=== PATIENT | female | born 1985 | race Caucasian/White ===

== ENCOUNTER 2017-05-31 06:18 | Inpatient (IN) | payer BC ==
[2017-05-31] MEDS ORDERED: METHYLERGONOVINE 0.2 MG/ML 1 ML AMP IM PRN (06:21)
[2017-05-31] MEDS ORDERED: LIDOCAINE 1% (PF) 10 MG/ML (30 ML SDV) SQ PRN (06:21)
[2017-05-31] MEDS ORDERED: OXYTOCIN 10 UNIT/ML 1 ML VIAL IM PRN (06:21)
[2017-05-31] MEDS ORDERED: CARBOPROST TROMETHAMINE 250 MCG/ML 1 ML AMP IM PRN (06:21)
[2017-05-31] MEDS ORDERED: TERBUTALINE 1 MG/ML VIAL SQ PRN (06:21)
[2017-05-31 06:26] VITALS: BMI 31.1
[2017-05-31] MEDS ORDERED: LACTATED RINGERS 1,000 ML IV SCH (06:30)
[2017-05-31] MEDS: LACTATED RINGERS 1,000 ML IV SCH ×2 (06:34→10:15)
[2017-05-31] MEDS: OXYTOCIN 20 UNITS/1000 ML NS 1,000 ML IV SCH (06:34)
[2017-05-31 06:58] LABS: Basophils # (A) 0.1 k/uL (0-0.2); Basophils % (A) 1 %; Eosinophils # (A) 0.1 k/uL (0-0.7); Eosinophils % (A) 1 %; HCT 39.6 % (34.0-46.0); HGB 13.7 gm/dL (11.4-16.0); Lymphocytes # (A) 2.5 k/uL (1.0-4.8); Lymphocytes % (A) 25 %; MCH 32.2 pg (25.0-35.0); MCHC 34.5 g/dL (31.0-37.0); MCV 93.2 fL (80.0-100.0); Mean Platelet Volume 7.9; Monocytes # (A) 0.6 k/uL (0-1.0); Monocytes % (A) 6 %; Neutrophils # (A) 6.6 k/uL (1.3-7.7); Neutrophils % (A) 66 %; Platelet Count 214 k/uL (150-450); RBC 4.24 m/uL (3.80-5.40); RDW 12.6 % (11.5-15.5)
--- NOTE | 2017-05-31 07:47 | P.HPOB ---
History of Present Illness H&P Date: 05/31/17 This is a 32-year-old white female 7 para 40-4 EDC 05/31/2017 at 40 weeks gestation. Patient presents for elective induction of labor but is noted to be in early spontaneous labor with uterine contractions every 4-5 minutes apart. Fetus is been active throughout the . She denies vaginal bleeding or fluid leakage. Past obstetric history is significant for negative group B strep cultures, blood type O positive, rubella status immune. Pap smear, urine culture, gonorrhea and chlamydia cultures, hepatitis B surface antigen, HIV testing all negative. One hour Glucola elevated, 3 hour GTT within normal limits. Social history patient is , she has never been a smoker, she denies alcohol or drug use. Past medical history is essentially negative. Past surgical history D&C in 2005. Current medications vitamins. ALLERGIES none known. On exam this is a pleasant female, 5 foot 1 inch, 165 pounds, blood pressure 122 /82, patient is afebrile. The general physical exam is within normal limits. The cervix is 5 cm dilated, 70% effaced, -2 station, vertex presentation. Artificial amniorrhexis reveals clear fluid, slightly bloody tinged. heart rate is in the 120s with frequent accelerations consistent with reactive NST. Impression: 40 week intrauterine , early spontaneous labor, all signs reassuring. Plan: Oxytocin augmentation as needed. Analgesic options have been reviewed with the patient. Close maternal and surveillance. Anticipate normal spontaneous vaginal delivery. Review of Systems Constitutional: Reports as per HPI Past Medical History Past Medical History: No Reported History History of Any Multi-Drug Resistant Organisms: None Reported Additional Past Surgical History / Comment(s): D&C Past Anesthesia/Blood Transfusion Reactions: No Reported Reaction Past Psychological History: No Psychological Hx Reported Smoking Status: Never smoker Past Alcohol Use History: None Reported Past Drug Use History: None Reported - Past Family History Mother Family Medical History: No Reported History Medications and Allergies Home Medications Medication Instructions Recorded Confirmed Type Iwf-Hwtw-Pbtxa Acid 1 each PO DAILY 11/01/13 05/31/17 History [-U Capsule] Allergies Allergy/AdvReac Type Severity Reaction Status Date / Time No Known Allergies Allergy Verified 01/14/14 09:37 Exam - Vital Signs Vital signs: Vital Signs Temp Pulse Resp BP Pulse Ox 05/31/17 06:22 97 F L 74 16 122/82 100 Intake and Output 05/30/17 05/31/17 05/31/17 22:59 06:59 14:59 Other: Weight 74.843 kg See HPI please Results Result Diagrams: 05/31/17 06:35 Assessment and Plan Plan: Continue close maternal and surveillance. Consider oxytocin augmentation as needed. Analgesic options reviewed. Anticipate normal spontaneous vaginal delivery. Time with Patient: Less than 30
[2017-05-31] MEDS ORDERED: BUPIVACAINE (PF) 0.25% 30 ML VIAL ONE (09:46)
[2017-05-31] MEDS ORDERED: SODIUM CHLORIDE 0.9% 100 ML BAG ONE (09:46)
[2017-05-31] MEDS ORDERED: fentaNYL (PF) 50 MCG/ML 5 ML AMP ONE (09:46)
[2017-05-31] MEDS ORDERED: LANOLIN CREAM 5 GM TUBE TOPICAL PRN (11:13)
[2017-05-31] MEDS ORDERED: Acetaminophen-Codeine 300-30mg TAB PO PRN (11:13)
[2017-05-31] MEDS ORDERED: SIMETHICONE 80 MG CHEWABLE PO PRN (11:13)
[2017-05-31] MEDS ORDERED: diphenhydrAMINE ELIXIR 25 MG/10 ML CUP PO PRN (11:13)
[2017-05-31] MEDS ORDERED: HYDROCORTISONE 2.5% RECTAL CREAM 30 GM TUBE RECTAL PRN (11:13)
[2017-05-31] MEDS ORDERED: ACETAMINOPHEN TAB 325 MG TAB PO PRN (11:13)
[2017-05-31] MEDS ORDERED: ZOLPIDEM 5 MG TAB PO PRN (11:13)
[2017-05-31] MEDS ORDERED: diphenhydrAMINE 50 MG/ML 1 ML VIAL IVP PRN ×2 (11:13)
[2017-05-31] MEDS ORDERED: BENZOCAINE/MENTHOL SPRAY 1 GM/SPRAY AEROSOL TOPICAL PRN (11:13)
[2017-05-31] MEDS ORDERED: WITCH HAZEL 1 EACH MED..PAD TOPICAL PRN (11:13)
[2017-05-31] MEDS ORDERED: diphenhydrAMINE 50 MG CAP PO PRN (11:13)
[2017-05-31] MEDS ORDERED: diphenhydrAMINE 25 MG CAP PO PRN (11:13)
[2017-05-31] MEDS ORDERED: IBUPROFEN 600 MG TAB PO PRN (11:13)
--- NOTE | 2017-05-31 11:13 | P.PROBDLV ---
Vaginal Delivery Note - . Vaginal Delivery Note: This is a 32-year-old white female 7 para 4024 EDC 05/31/2017 at 40 weeks gestation. Patient was initially scheduled for induction but presented in early active spontaneous labor. is essentially unremarkable, group B strep cultures negative, blood type O+, rubella status immune. Please see dictated history and physical for details. Artificial amniorrhexis revealed clear fluid. Oxytocin was started and titrated per hospital protocol, augmentation. She became uncomfortable and requested an epidural, this was placed per the anesthesia staff. Her tones remained reassuring throughout the first and second stages of labor. She was judged to be completely dilated at 1050 hrs. Perineal body was prepped and draped in usual sterile fashion. With excellent expulsive efforts infant's head delivered occiput anterior and restituted accordingly. There was no nuchal cord noted. The left or anterior shoulder was gently and easily delivered from underneath the pubic symphysis at which time the oropharynx, nasopharynx, and external nares were all bulb suctioned on the perineal body. Patient was officially delivered of a liveborn female at 1058 hrs. The umbilical cord was doubly clamped and ligated, she was handed to waiting nurses for evaluation where scores of 9 and 10 at one and 5 minutes respectively were given. Placenta delivered spontaneously, it was inspected and noted to be intact with trivascular cord at 1102 hrs. Uterus is then massaged, bleeding is minimal. Inspection of the cervix, vagina, perineum, periurethral, and perirectal areas reveals no lacerations and no defects. Estimated blood loss total 250 mL's. Infant's weight 8 lbs. 4 oz. or 3745 g. All sponge needle and instrument counts are correct at the end of the procedure. Patient and her family are allowed to begin the bonding experience in the LDR.
[2017-05-31] MEDS ORDERED: BUPIVACAINE (PF) 0.25% 25 ML, fentaNYL (PF) 200 MCG in SODIUM CHLORIDE 0.9% 71 ML EPIDURAL ONE (11:44)
[2017-05-31] MEDS: SENNOSIDES-DOCUSATE SODIUM 1 EACH TAB PO SCH (19:21)
[2017-06-01 04:08] VITALS: BP 117/68; PULSE 67; RESP 16; TEMP 98.3
[2017-06-01] MEDS: SENNOSIDES-DOCUSATE SODIUM 1 EACH TAB PO SCH (07:38)
--- NOTE | 2017-06-01 07:38 | P.DS ---
Providers Date of admission: 05/31/17 06:18 Expected date of discharge: 06/01/17 Attending physician: Deena Marsh Primary care physician: Stated None Hospital Course: This is a 32-year-old white female 7 para 40-4 EDC 05/31/2017 at 40 weeks gestation. Patient presented initially for induction with favorable cervix, but was judged to be in early spontaneous labor. Artificial amniorrhexis revealed clear fluid. Oxytocin augmentation was given an epidural was placed per her request. She went on to deliver a liveborn female with scores of 9 and 10 at one and 5 minutes respectively. weight 8 lbs. 4 oz. or 3745 g. There were no perineal lacerations noted, and an estimated blood loss of 250 mL was recorded. Please see both dictated history and physical as well as delivery note for further details. This morning the patient and her baby are both doing very well. The patient is breast-feeding, tolerating regular food, ambulating, voiding, and has minimal pain. Minimal to moderate lochia rubra is noted with no large clots. Breasts are not engorged, fundus is firm and in the midline, symmetric and 18 week size. Extremities are negative for edema. Again, baby is doing well. Plan is for discharge home later today. Patient is reminded no intercourse, tampons or douching. She will use kfnh-qyi-uumxoba ibuprofen products as needed for pain, 200 mg pills, 3 every 6 hours as needed. I have reminded her to call me with any fevers shakes or chills, foul smelling or copious lochia, with the passage of large blood clots, with any pain not alleviated by over-the- counter products, or indeed with any concerns. She will continue taking her vitamin daily. We have briefly discussed options for contraception and we will discuss this further in the office. Patient Condition at Discharge: Good Plan - Discharge Summary New Discharge Prescriptions: No Action Slj-Bmob-Kuekb Acid [-U Capsule] 1 each PO DAILY Discharge Medication List Cta-Dlil-Uyjew Acid [-U Capsule] 1 each PO DAILY 11/01/13 [ History] Follow up Appointment(s)/Referral(s): Deena Marsh MD [STAFF PHYSICIAN] - 6 Weeks Discharge Disposition: HOME SELF-CARE
[2017-06-01] MEDS: OXYTOCIN 20 UNITS/1000 ML NS 1,000 ML IV SCH (08:28)
[2017-06-01] MEDS: LACTATED RINGERS 1,000 ML IV SCH (08:28)
== END 2017-06-01 12:00 | disposition home or self-care (01) | DRG 775 ==
LOC: 4FBP 06:18
PROVIDERS: ADMIT Obstetrics & Gynecology; ATTEND Obstetrics & Gynecology
PROC: 3E0R3NZ Introduction of Analgesics, Hypnotics, Sedatives into Spinal Canal, Percutaneous Approach (ICD-10-PCS; principal; 2017-05-31)
PROC: 10E0XZZ Delivery of Products of Conception, External Approach (ICD-10-PCS; principal; 2017-05-31)
PROC: 10907ZC Drainage of Amniotic Fluid, Therapeutic from Products of Conception, Via Natural or Artificial Opening (ICD-10-PCS; principal; 2017-05-31)
DX: O80 Encounter for full-term uncomplicated delivery (principal); Z37.0 Single live birth; Z3A.40 40 weeks gestation of pregnancy
CPT/HCPCS: 85025; 88307

== ENCOUNTER 2021-01-19 06:06 | Inpatient (IN) | payer BC ==
[2021-01-19] MEDS ORDERED: METHYLERGONOVINE 0.2 MG/ML 1 ML AMP IM PRN (06:20)
[2021-01-19] MEDS ORDERED: OXYTOCIN 10 UNIT/ML 1 ML VIAL IM PRN (06:20)
[2021-01-19] MEDS ORDERED: TERBUTALINE 1 MG/ML VIAL SQ PRN (06:20)
[2021-01-19] MEDS ORDERED: CARBOPROST TROMETHAMINE 250 MCG/ML 1 ML AMP IM PRN (06:20)
[2021-01-19] MEDS ORDERED: LIDOCAINE 0.5% (PF) 5 MG/ML (50 ML SDV) SQ PRN (06:20)
[2021-01-19] MEDS ORDERED: LACTATED RINGERS 1,000 ML IV SCH (06:30)
[2021-01-19] MEDS ORDERED: OXYTOCIN 30 UNITS/500 ML NS 30 UNIT in SALINE 1 500ML.BAG IV SCH (06:30)
[2021-01-19 06:47] LABS: Basophils # (A) 0.1 k/uL (0-0.2); Basophils % (A) 1 %; Eosinophils # (A) 0.1 k/uL (0-0.7); Eosinophils % (A) 1 %; HCT 38.9 % (34.0-46.0); HGB 13.4 gm/dL (11.4-16.0); Lymphocytes # (A) 2.6 k/uL (1.0-4.8); Lymphocytes % (A) 28 %; MCH 32.3 pg (25.0-35.0); MCHC 34.5 g/dL (31.0-37.0); MCV 93.5 fL (80.0-100.0); Mean Platelet Volume 8.4; Monocytes # (A) 0.6 k/uL (0-1.0); Monocytes % (A) 6 %; Neutrophils # (A) 5.8 k/uL (1.3-7.7); Neutrophils % (A) 62 %; Platelet Count 180 k/uL (150-450); RBC 4.16 m/uL (3.80-5.40); RDW 13.6 % (11.5-15.5); WBC 9.4 k/uL (3.8-10.6)
--- NOTE | 2021-01-19 07:20 | P.HPOB ---
History of Present Illness H&P Date: 01/19/21 Chief Complaint: For elective induction of labor with favorable multiparous cervix This is a 35-year-old white female 8 para 5025 EDC 01/26/2021 at 39 weeks gestation who presents with her cervical exam at 5 cm, for induction of labor. She denies vaginal bleeding or fluid leakage. Fetus is been active throughout the . Past medical history is taken for anxiety. Past surgical history D&C for miscarriage 2005. Current medications Lexapro 10 mg daily, vitamin daily, baby aspirin daily. ALLERGIES none known. Family history significant for alcoholism. Social history patient is , her Rk is present. She denies tobacco or alcohol use, no social drug use. history is significant for blood type O+, rubella status immune. Urine culture, hepatitis B surface antigen, HIV testing, gonorrhea and chlamydia cultures, Pap smear, group B strep cultures all negative. One-hour Glucola elevated, 3 hour GTT limits. On exam patient is 5 foot 1 inch, 174 pounds, admission blood pressure 141/80. The general physical exam is within normal limits. Extremities reveal no edema. heart rate is consistent with reactive NST. Cervix is 5 cm dilated, 70% effaced, -2 station, vertex presentation, anterior and soft. Artificial amniorrhexis reveals clear fluid. Impression: 39 week intrauterine , advanced maternal age, advanced cervical dilation, here for induction of labor. All signs reassuring. Plan: Oxytocin per hospital protocol. Analgesic options reviewed with the patient. Close maternal and surveillance. Anticipate normal spontaneous vaginal delivery. Review of Systems Constitutional: Reports as per HPI Past Medical History Past Medical History: No Reported History History of Any Multi-Drug Resistant Organisms: None Reported Additional Past Surgical History / Comment(s): D&C Past Anesthesia/Blood Transfusion Reactions: No Reported Reaction Past Psychological History: No Psychological Hx Reported Past Alcohol Use History: None Reported Past Drug Use History: None Reported - Past Family History Mother Family Medical History: No Reported History Medications and Allergies Home Medications Medication Instructions Recorded Confirmed Type Zgx-Clcq-Mwkor Acid 1 each PO DAILY 11/01/13 01/19/21 History [-U Capsule] Aspirin [Adult Low Dose Aspirin EC] 81 mg PO DAILY 01/19/21 01/19/21 History Escitalopram [Lexapro] 20 mg PO HS 01/19/21 01/19/21 History Allergies Allergy/AdvReac Type Severity Reaction Status Date / Time No Known Allergies Allergy Verified 01/19/21 06:16 Exam Intake and Output 01/18/21 01/19/21 01/19/21 22:59 06:59 14:59 Other: Weight 78.925 kg See dictation under HPI placed Results Result Diagrams: 01/19/21 06:15 Assessment and Plan Assessment: 39 week intrauterine , advanced maternal age, advanced cervical dilation, here for induction of labor. All signs reassuring. Plan: Oxytocin per hospital protocol. Close maternal and surveillance. Analgesic options reviewed. Anticipate normal spontaneous vaginal delivery. Time with Patient: Less than 30
[2021-01-19] MEDS ORDERED: BUTORPHANOL 1 MG/ML 1 ML VIAL IV PRN (07:36)
[2021-01-19] MEDS ORDERED: BENZOCAINE/MENTHOL SPRAY 1 GM/SPRAY AEROSOL TOPICAL PRN (10:47)
[2021-01-19] MEDS ORDERED: diphenhydrAMINE 50 MG CAP PO PRN (10:47)
[2021-01-19] MEDS ORDERED: diphenhydrAMINE 50 MG/ML 1 ML VIAL IVP PRN ×2 (10:47)
[2021-01-19] MEDS ORDERED: LANOLIN CREAM 5 GM TUBE TOPICAL PRN (10:47)
[2021-01-19] MEDS ORDERED: HYDROCORTISONE 2.5% RECTAL CREAM 30 GM TUBE RECTAL PRN (10:47)
[2021-01-19] MEDS ORDERED: SIMETHICONE 80 MG CHEWABLE PO PRN (10:47)
[2021-01-19] MEDS ORDERED: diphenhydrAMINE 25 MG CAP PO PRN (10:47)
[2021-01-19] MEDS ORDERED: ZOLPIDEM 5 MG TAB PO PRN (10:47)
--- NOTE | 2021-01-19 10:47 | P.PROBDLV ---
Vaginal Delivery Note - . Vaginal Delivery Note: This is a 35-year-old white female 8 para 5025 EDC 01/26/2021 at 39 weeks gestation who presented for induction with advanced cervical dilatation. Blood type is O+, rubella status immune, group B strep cultures negative. Please see dictated history and physical for details. Artificial amniorrhexis was performed. Oxytocin was started and titrated. Stadol 1. She became completely dilated at 1029 hrs. Perineal body was prepped and draped in usual sterile fashion. With excellent maternal expulsive efforts 's head delivered occiput anterior and he restituted accordingly. There was a nuchal cord 2 that was reduced. The left or anterior shoulder was gently delivered from underneath the pubic symphysis at which time the oropharynx, nasopharynx, and external nares were all bulb suctioned. Patient officially delivered a liveborn male at 1035 hrs. Umbilical cord was doubly clamped and ligated, he was handed to waiting nurses for evaluation where scores of 9 and 9 at one and 5 minutes respectively were given. Uterus is then massaged. Placenta delivers spontaneously, it is inspected and noted to be intact with trivascular cord at 1038 hrs. At this time careful inspection of the cervix, vagina, perineum, periurethral, and perirectal areas is performed. No lacerations or defects are noted. Fundus is firm and in the midline, symmetric and 18 week size. Total estimated blood loss 250 mL's. weighs 7 lbs. 13 oz. or 3535 g. Patient is requesting circumcision for her infant son. All sponge needle and enhancement counts are correct at the end of this procedure.
[2021-01-19] MEDS ORDERED: ACETAMINOPHEN TAB 325 MG TAB PO PRN (10:54)
[2021-01-19] MEDS: IBUPROFEN 600 MG TAB PO PRN (14:16)
[2021-01-19 17:02] VITALS: RESP 16
[2021-01-19] MEDS ORDERED: ESCITALOPRAM 20 MG TAB PO SCH (21:00)
[2021-01-19] MEDS: SENNOSIDES-DOCUSATE SODIUM 1 EACH TAB PO SCH (21:07)
[2021-01-20 00:14] VITALS: PULSE 74
[2021-01-20 07:11] LABS: Basophils # (A) 0.1 k/uL (0-0.2); Basophils % (A) 0 %; Eosinophils # (A) 0.1 k/uL (0-0.7); Eosinophils % (A) 1 %; HCT 37.1 % (34.0-46.0); HGB 12.4 gm/dL (11.4-16.0); Lymphocytes # (A) 2.1 k/uL (1.0-4.8); Lymphocytes % (A) 16 %; MCH 32.1 pg (25.0-35.0); MCHC 33.5 g/dL (31.0-37.0); Mean Platelet Volume 8.8; Monocytes # (A) 0.5 k/uL (0-1.0); Monocytes % (A) 4 %; Neutrophils # (A) 9.6 k/uL (1.3-7.7); Neutrophils % (A) 77 %; Platelet Count 174 k/uL (150-450); RBC 3.87 m/uL (3.80-5.40); RDW 13.7 % (11.5-15.5); WBC 12.5 k/uL (3.8-10.6)
--- NOTE | 2021-01-20 08:11 | P.DS ---
Providers Date of admission: 01/19/21 06:06 Expected date of discharge: 01/20/21 Attending physician: Deena Marsh Primary care physician: Stated None Hospital Course: This is a 35-year-old white female 8 para 5025 EDC 01/26/2021 at 39 weeks gestation who presented for induction with advanced cervical dilatation, 5-6 cm on admission. Fetus had been active throughout the . Group B strep cultures negative, blood type O+, rubella status immune. Please see dictated history and physical for details. Artificial amniorrhexis revealed clear fluid. Oxytocin was started and titrated. Epidural was placed per her request. She went on to deliver rather swiftly a liveborn male with scores of 9 and 9 at one and 5 minutes respectively. Infant weighed 7 lbs. 13 oz. or 3535 g. There was a nuchal cord 2 that was reduced, no perineal lacerations. Estimated blood loss 250 mL's. Please see dictated delivery note for details. This morning the patient is doing well. She is voiding, ambulate and passing fl atus without difficulty. Vital signs are stable and she is afebrile. Fundus is firm and in the midline, symmetric and 18 week size. Extremities reveal no edema. [place] is doing well, circumcision has been performed. Patient is judged to be in very good condition for discharge home. She will follow-up with me in the office in 6 weeks. We have reviewed options for contraception and we will discuss this further in the office. No intercourse tampons or douching. Gbpd-qya-dpmkyky Advil or Aleve, or Motrin as needed for pain. Patient will call with any fevers shakes or chills, foul smelling or copious lochia, with the passage of large blood clots, with any pain not alleviated by jtoy-[id number]-vevrpuk products, or indeed with any concerns. Assessment: Doing well first day Patient Condition at Discharge: Good Plan - Discharge Summary Discharge Rx Participant: No New Discharge Prescriptions: No Action Xwc-Fecd-Vmowi Acid [-U Capsule] 1 each PO DAILY Escitalopram [Lexapro] 20 mg PO HS Aspirin [Adult Low Dose Aspirin EC] 81 mg PO DAILY Discharge Medication List Usc-Feyp-Rcgrc Acid [-U Capsule] 1 each PO DAILY 11/01/13 [History] Aspirin [Adult Low Dose Aspirin EC] 81 mg PO DAILY 01/19/21 [History] Escitalopram [Lexapro] 20 mg PO HS 01/19/21 [History] Follow up Appointment(s)/Referral(s): Deena Marsh MD [STAFF PHYSICIAN] - 6 Weeks Discharge Disposition: HOME SELF-CARE
[2021-01-20] MEDS: SENNOSIDES-DOCUSATE SODIUM 1 EACH TAB PO SCH (08:58)
[2021-01-20] MEDS: IBUPROFEN 600 MG TAB PO PRN (08:58)
[2021-01-20] MEDS ORDERED: ESCITALOPRAM 20 MG TAB PO SCH (09:00)
[2021-01-20 09:44] VITALS: BP 127/77; TEMP 98.1
== END 2021-01-20 11:55 | disposition home or self-care (01) | DRG 807 ==
LOC: 4FBP 06:06
PROVIDERS: ADMIT Obstetrics & Gynecology; ATTEND Obstetrics & Gynecology
PROC: 10E0XZZ Delivery of Products of Conception, External Approach (ICD-10-PCS; principal; 2021-01-19)
DX: O69.81X0 Labor and delivery complicated by cord around neck, without compression, not applicable or unspecified (principal); Z37.0 Single live birth; Z3A.39 39 weeks gestation of pregnancy; Z79.82 Long term (current) use of aspirin; Z79.899 Other long term (current) drug therapy
CPT/HCPCS: 85025; 86850; 86900; 86901